=== PATIENT | male | born 1975 | race Caucasian/White ===

== ENCOUNTER → 2016-08-23 | Outpatient (CLI) | payer OTHER ==
[~2016-08-23] MED LIST: CLB/200 PO; TRAM-10 PO; TRAM1TAB14 PO
== END | disposition home or self-care (01) ==
LOC: C.LABBC 07:50
PROVIDERS: ATTEND Internal Medicine Endocrinology, Diabetes & Metabolism
DX: M51.36 Other intervertebral disc degeneration, lumbar region (principal); E29.1 Testicular hypofunction; N52.9 Male erectile dysfunction, unspecified